=== PATIENT | female | born 1950 | race Caucasian/White ===

== ENCOUNTER 2018-06-17 07:58 | Outpatient (CLI) | payer OTHER | END 2018-06-17 08:00 | disposition home or self-care (01) | LOC: SONOGRAMA 07:58 | DX: E04.2 Nontoxic multinodular goiter (principal) ==

== ENCOUNTER 2024-09-04 08:36 | Outpatient (CLI) | payer OTHER | END 2024-09-04 08:43 | disposition home or self-care (01) | LOC: TOM 08:36 | PROVIDERS: ATTEND Internal Medicine Gastroenterology | DX: K57.32 Diverticulitis of large intestine without perforation or abscess without bleeding (principal); K31.89 Other diseases of stomach and duodenum; Z86.0100 Personal history of colon polyps, unspecified; K59.09 Other constipation; K76.0 Fatty (change of) liver, not elsewhere classified ==

== ENCOUNTER 2024-12-25 08:03 | Outpatient (CLI) | payer OTHER | END 2024-12-25 08:04 | disposition home or self-care (01) | LOC: NUCLEAR 08:03 | PROVIDERS: ATTEND Surgery | DX: K81.1 Chronic cholecystitis (principal) | CPT/HCPCS: 78227; A9537 ==